=== PATIENT | male | born 1960 | race Caucasian/White ===

== ENCOUNTER 2017-03-07 11:47 | Outpatient (CLI) | payer OTHER ==
[2017-03-07 14:05] LABS: #Basophils 0.1 thou/uL (0.0-0.2); #Eosinphils 0.1 thou/uL (0.0-0.7); #Lymphocytes 2.8 thou/uL (1.20-3.40); #Monocytes 0.6 thou/uL (0.11-0.59); #Neutrophils 3.1 thou/uL (1.40-6.50); %Basophils 1.3 % (0.0-1.0); %Lymphocytes 41.4 % (21.0-51.0); %Monocytes 9.5 % (0.0-10.0); Hematocrit 46.4 % (42.0-52.0); Mean Platelet Volume 7.1 fL (7.4-10.4); White Blood Cell (WBC) Count 6.7 thou/uL (4.8-10.8)
[2017-03-07 14:28] LABS: Anion Gap 12 mmol/L (10-20); BUN (Urea Nitrogen) 19 mg/dL (8.4-25.7); Calc. Creatinine Clearance 0 mL/min (70-130); Calcium 9.8 mg/dL (7.8-10.44); Carbon Dioxide 25 mmol/L (22-29); Chloride 105 mmol/L (98-107); Estimated GFR-MDRD 58
== END 2017-03-07 11:48 | disposition home or self-care (01) ==
LOC: LABBT 11:47
PROVIDERS: ATTEND Surgery
DX: Z01.812 Encounter for preprocedural laboratory examination (principal); K40.90 Unilateral inguinal hernia, without obstruction or gangrene, not specified as recurrent
CPT/HCPCS: 80048; 85025

== ENCOUNTER 2017-03-18 13:16 | Day surgery (SDC) | payer OTHER ==
[2017-03-07 12:08] VITALS: BMI 26.7
[2017-03-18] MEDS ORDERED: CEFAZOLIN/Water 2 GM/20 ML SYRINGE ONE (13:34)
[2017-03-18] MEDS ORDERED: Midazolam HCl 2 mg/2 ml Vial ONE ×2 (13:53→16:08)
[2017-03-18] MEDS ORDERED: Famotidine/PF 20 mg/2ml Vial ONE (13:53)
[2017-03-18] MEDS ORDERED: Ketorolac Tromethamine 30 MG/ML VIAL ONE (15:27)
[2017-03-18] MEDS ORDERED: Dexamethasone 20 MG/5 ML VIAL ONE (15:27)
[2017-03-18] MEDS ORDERED: Propofol 200 MG/20 ML VIAL ONE (15:27)
[2017-03-18] MEDS ORDERED: Ondansetron HCl/PF 4 MG/2 ML Vial ONE (15:27)
[2017-03-18] MEDS ORDERED: Lidocaine 1% PF 5 ML VIAL ONE (15:27)
[2017-03-18] MEDS ORDERED: Glycopyrrolate 0.2 MG/ML 5 ML SYRINGE ONE (15:29)
[2017-03-18] MEDS ORDERED: Bupivacaine/Epinephrine 0.25% 30 ML VIAL ONE (16:44)
[2017-03-18] MEDS ORDERED: Fentanyl 100 MCG/2 ML VIAL ONE ×4 (17:01→18:46)
[2017-03-18] MEDS ORDERED: Promethazine HCl 25 MG/ML VIAL ONE (18:46)
[2017-03-18] MEDS ORDERED: traMADol HCl 50 MG TAB ONE (19:51)
--- NOTE | 2017-03-19 13:39 | OP ---
DATE OF PROCEDURE: 03/18/2017 PREOPERATIVE DIAGNOSIS: Right inguinal hernia. POSTOPERATIVE DIAGNOSIS: Right inguinal hernia. PROCEDURE: Da Karina laparoscopic right inguinal hernia repair with mesh, ProGrip. SURGEON: Pieter Kirkland M.D. ANESTHESIA: General. ESTIMATED BLOOD LOSS: Minimal. COMPLICATIONS: None. SPECIMEN: None. FINDINGS: Right inguinal hernia. TECHNIQUE: The patient was taken to the operating room and placed supine on the table. After genera l anesthetic was obtained, a Wylie was placed, the abdomen was shaved, prepped and draped in a steril e fashion. Curved incision made below the umbilicus. Cautery was used to dissect down to and score the fascia. Abdominal cavity entered bluntly using a 12-mm Ethicon trocar. High-flow pneumoperitone um was obtained. Right and left abdominal robot 8 mm trocars were placed. All ports were docked to the robot. The surgeon goes to the console. The peritoneum was taken down in the right groin, expos ing the preperitoneal space. Preperitoneal space was fully dissected down to past the iliopectineal line. The pubic tubercle was exposed medially all the way towards the anterior superior iliac crest laterally. The indirect hernia sac was dissected out of the indirect defect and left high upon the p eritoneum. ProGrip mesh brought in and through the right lower quadrant port and its medial aspect wa s placed over the pubic tubercle medially. The mesh was unfolded superiorly and inferiorly to fully cover the direct, indirect and femoral areas. The peritoneum was reapproximated using 3-0 Stratafix suture. All port sites were infiltrated using local anesthetic. All ports were removed under camera visualization. Pneumoperitoneum was let down. PDS was used to close the fascial defect above the u mbilicus. All incisions were irrigated and closed using 4-0 Monocryl and Dermabond. The patient was en route to recovery in stable condition. All instrument counts, needle counts, and lap counts were correct.
== END 2017-03-18 21:22 | disposition home or self-care (01) ==
LOC: SDC 13:16
PROVIDERS: ATTEND Surgery
PROC: 0YU54JZ Supplement Right Inguinal Region with Synthetic Substitute, Percutaneous Endoscopic Approach (ICD-10-PCS; principal; 2017-03-18)
DX: K40.90 Unilateral inguinal hernia, without obstruction or gangrene, not specified as recurrent (principal); K21.9 Gastro-esophageal reflux disease without esophagitis; I10 Essential (primary) hypertension; E78.00 Pure hypercholesterolemia, unspecified; F17.210 Nicotine dependence, cigarettes, uncomplicated; I45.10 Unspecified right bundle-branch block; Z85.828 Personal history of other malignant neoplasm of skin; Z88.5 Allergy status to narcotic agent; Z79.899 Other long term (current) drug therapy; Z98.890 Other specified postprocedural states
CPT/HCPCS: 96374; J1100; J1885; J2001; J2250; J2405; J2550; J2704; J3010; S0028